=== PATIENT | female | born 1985 | race Hispanic/Latino ===

== ENCOUNTER 2020-06-12 15:32 | Inpatient (IN) | payer MEDICARE, OTHER ==
[~2020-06-12] VITALS: Ht 162.6 cm; Wt 127.5 kg
[2020-06-12] MEDS ORDERED: ALBUTEROL INHALER 90MCG/INH IH ONE (16:15)
[2020-06-12 16:23] LABS: BASOPHILS % (AUTO) 0.2 % (0.0-5.0); EOSINOPHILS % (AUTO) 1.5 % (0.0-8.0); HEMATOCRIT 42.1 % (36-48); LYMPHOCYTES % (AUTO) 25.9 % (21.0-51.0); MEAN CORPUSCULAR HEMOGLOBIN 29.7 pg (27.0-33.0); MEAN CORPUSCULAR HGB CONC 33.5 g/dL (32.0-36.0); MEAN CORPUSCULAR VOLUME 88.8 fL (79-99); MONOCYTES % (AUTO) 6.1 % (3.0-13.0); PLATELET COUNT (AUTO) 220 K/uL (130-400); RED BLOOD CELL COUNT(AUTO) 4.74 MIL/uL (4.00-5.50); RED CELL DISTRIBUTION WIDTH 13.7 % (11.0-15.5); WHITE BLOOD COUNT (AUTO) 10.1 K/uL (4.8-10.8)
[2020-06-12 16:37] LABS: CREATININE 0.9 mg/dL (0.5-1.5); POTASSIUM 3.7 mmol/L (3.5-5.1)
[2020-06-12 16:39] LABS: INR 0.92 (0.85-1.15); PARTIAL THROMBOPLASTIN TIME 25.9 SEC (26.3-35.5)
[2020-06-12 16:41] LABS: ALBUMIN 2.9 g/dL (3.5-5.0); BILIRUBIN,TOTAL 0.6 mg/dL (0.2-1.0); TOTAL PROTEIN, SERUM 8.1 g/dL (6.0-8.3)
[2020-06-12] MEDS ORDERED: LORAZEPAM 2 MG/ML 1 ML VIAL ONE (16:42)
[2020-06-12] MEDS ORDERED: ONDANSETRON HCL 4 MG/2 ML VIAL ONE (17:12)
[2020-06-12] MEDS ORDERED: DEXAMETHASONE SOD PHOSPHATE 4 MG/ML 1ML VIAL ONE (17:12)
[2020-06-12] MEDS ORDERED: MORPHINE SULFATE 2 MG/ML 1ML SYG ONE (17:13)
[2020-06-12] MEDS ORDERED: INSULIN HUMULIN R 100 UNIT/ML 3ML ONE (17:14)
[2020-06-12 17:52] LABS: ABG BASE EXCESS -0.3 mmol/L (-2.0-3.0); ABG HCO3 23.5 mmol/L (21.0-28.0); ABG OXYGEN SATURATION 94.2 % (95.0-99.0); ABG PCO2 36 mmHg (32-45)
[2020-06-12] MEDS ORDERED: ENOXAPARIN SODIUM 80 MG/0.8 ML SQ ONE (17:59)
[2020-06-12] MEDS ORDERED: GUAIFENESIN-CODEINE 5 ML SYRUP ONE (18:00)
[2020-06-12] MEDS ORDERED: LACTATED RINGERS 1000ML 1,000 ML IV SCH (18:40)
[2020-06-12] MEDS ORDERED: NITROGLYCERIN 0.4 MG SL TAB SL PRN (18:45)
[2020-06-12] MEDS ORDERED: MAG HYDROX/AL HYDROX/SIMETH ES 30 ML SUSP UDCUP PO PRN (18:45)
[2020-06-12] MEDS ORDERED: HYDRALAZINE HCL 20 MG/ML VIAL IV PRN (18:45)
[2020-06-12] MEDS ORDERED: DiphenhydrAMINE HCL 50 MG/ML VIAL IV PRN (18:45)
[2020-06-12] MEDS ORDERED: MAG HYDROX/AL HYDROX/SIMETH 30 ML, LIDOCAINE HCL 2% VISCOUS 30 ML, DIPHENHYDRAMINE HCL ... PO PRN ×3 (18:45)
[2020-06-12] MEDS ORDERED: LIDOCAINE HCL 2% VISCOUS 30 ML, MAG HYDROX/AL HYDROX/SIMETH 30 ML, BELLADONNA-PHENOBARB... PO PRN ×3 (18:45)
[2020-06-12] MEDS: DEXAMETHASONE SOD PHOSPHATE 4 MG/ML 1ML VIAL IVP SCH (18:45)
[2020-06-12] MEDS ORDERED: POTASSIUM CHLORIDE 20 MEQ ERTAB PO PRN (18:45)
[2020-06-12] MEDS ORDERED: LACTULOSE 20 GM/30 ML UDCUP PO PRN (18:45)
[2020-06-12] MEDS ORDERED: ACETAMINOPHEN 325 MG TAB PO PRN ×2 (18:45)
[2020-06-12] MEDS ORDERED: POTASSIUM CHLORIDE 20MEQ/100ML 100 ML IV PRN (18:45)
[2020-06-12] MEDS ORDERED: LIDOCAINE HCL-MPF 1% 2ML VIAL IJ PRN (18:45)
[2020-06-12] MEDS: CEFTRIAXONE SODIUM 1 GM IV SCH (18:45)
[2020-06-12] MEDS: PHARMACY COMMUNICATION MISC SCH ×2 (18:45→21:00)
[2020-06-12] MEDS ORDERED: POTASSIUM CHLORIDE 10% ELIXIR 20 MEQ/15 ML UDCUP PO PRN (18:45)
[2020-06-12] MEDS ORDERED: ERGOCALCIFEROL (VITAMIN D2) 50,000 UNIT CAPSULE PO ONE (18:45)
[2020-06-12] MEDS ORDERED: DIPHENHYDRAMINE HCL 25 MG CAPSULE PO PRN (18:45)
[2020-06-12] MEDS ORDERED: IOHEXOL 350 MG/ML 100ML INFUS..BTL IV ONE (19:21)
[2020-06-12 19:26] LABS: MAGNESIUM 1.7 mg/dL (1.80-2.40)
[2020-06-12] MEDS: AZITHROMYCIN 500MG+NS 250ML 250 ML IV SCH (19:30)
[2020-06-12] MEDS ORDERED: DOXYCYCLINE 100MG+NS 250ML 250 ML IV ONE (19:47)
[2020-06-12] MEDS ORDERED: ERGOCALCIFEROL (VITAMIN D2) 50,000 UNIT CAPSULE ONE (20:24)
[2020-06-12] MEDS ORDERED: POTASSIUM CHLORIDE 20 MEQ ERTAB PO ONE (20:25)
[2020-06-12] MEDS ORDERED: AZITHROMYCIN 500MG+NS 250ML 250 ML IV ONE (20:25)
[2020-06-12] MEDS ORDERED: CEFTRIAXONE SODIUM 1 GM ONE (20:25)
[2020-06-12] MEDS ORDERED: OSELTAMIVIR PHOSPHATE 75 MG CAP ONE (20:26)
[2020-06-12] MEDS ORDERED: MORPHINE SULFATE 4 MG/1ML SYG ONE (20:27)
[2020-06-12] MEDS ORDERED: FAMOTIDINE/PF 20 MG/2 ML VIAL IV ONE (20:27)
[2020-06-12] MEDS ORDERED: ALBUTEROL INHALER 90MCG/INH IH PRN (20:45)
[2020-06-12] MEDS: INSULIN LISPRO 100 UNIT/ML 3ML SQ SCH (21:00)
[2020-06-12] MEDS: FAMOTIDINE/PF 20 MG/2 ML VIAL IV SCH (21:00)
[2020-06-12] MEDS ORDERED: PHARMACY COMMUNICATION MISC SCH (21:00)
[2020-06-12] MEDS: OSELTAMIVIR PHOSPHATE 75 MG CAP PO SCH (21:00)
[2020-06-12] MEDS: METHYLPREDNISOLONE SOD SUCC 40MG/ML 1ML IVP SCH (21:00)
[2020-06-12] MEDS ORDERED: IVERMECTIN 3 MG TAB PO SCH (22:30)
[2020-06-13] VITALS (7 sets, daily range): BP systolic 108–173; BP diastolic 64–88
[2020-06-13] MEDS: MORPHINE SULFATE 4 MG/1ML SYG IV PRN ×2 (01:25→17:05)
[2020-06-13] MEDS ORDERED: DICY10 PO (01:43)
[2020-06-13] MEDS ORDERED: DIPH1TAB PO (01:43)
[2020-06-13] MEDS ORDERED: OMEP40CA13 PO (01:43)
[2020-06-13] MEDS ORDERED: LIPA1CAP8 PO (01:43)
[2020-06-13] MEDS ORDERED: [UNRECOGNIZED DRUG - CODE] PO (01:43)
[2020-06-13] MEDS: GUAIFENESIN-DM 200/20 MG 10 ML PO PRN ×4 (02:01→20:20)
[2020-06-13] MEDS: MORPHINE SULFATE 2 MG/ML 1ML SYG IV PRN ×3 (03:05→20:24)
[2020-06-13 04:11] LABS: HEMATOCRIT 38.7 % (36-48); LYMPHOCYTES % (AUTO) 22.1 % (21.0-51.0); MEAN CORPUSCULAR HEMOGLOBIN 29.6 pg (27.0-33.0); MEAN CORPUSCULAR HGB CONC 33.1 g/dL (32.0-36.0); MEAN CORPUSCULAR VOLUME 89.4 fL (79-99); MONOCYTES % (AUTO) 5.2 % (3.0-13.0); NEUTROPHILS % (AUTO) 72.4 % (40.0-77.0); PLATELET COUNT (AUTO) 189 K/uL (130-400); RED BLOOD CELL COUNT(AUTO) 4.33 MIL/uL (4.00-5.50); RED CELL DISTRIBUTION WIDTH 13.3 % (11.0-15.5); WHITE BLOOD COUNT (AUTO) 7.3 K/uL (4.8-10.8)
[2020-06-13 04:47] LABS: ALANINE AMINOTRANSFERASE 47 U/L (12-78); ALBUMIN 2.6 g/dL (3.5-5.0); ASPARTATE AMINOTRANSFERASE 21 U/L (10-37); BILIRUBIN,TOTAL 0.4 mg/dL (0.2-1.0); CARBON DIOXIDE 23 mmol/L (21-32); CHLORIDE 102 mmol/L (101-111); CREATININE 0.7 mg/dL (0.5-1.5); GLOMERULAR FILTR. RATE CALC 102 mL/min (>60); GLUCOSE,RANDOM 336 mg/dL (70-105); LACTATE DEHYDROGENASE 165 U/L (81-234); POTASSIUM 4.5 mmol/L (3.5-5.1); SODIUM SERUM 133 mmol/L (136-145); TOTAL PROTEIN, SERUM 7.5 g/dL (6.0-8.3); UREA NITROGEN, BLOOD 12 mg/dL (7-18)
[2020-06-13] MEDS: INSULIN LISPRO 100 UNIT/ML 3ML SQ SCH ×4 (05:32→22:02)
[2020-06-13] MEDS ORDERED: SODIUM CHLORIDE 0.9% 0 ML IV ONE (05:39)
[2020-06-13] MEDS ORDERED: SODIUM CHLORIDE 0.9% 100 ML IV ONE ×2 (05:40→15:27)
[2020-06-13] MEDS: FAMOTIDINE/PF 20 MG/2 ML VIAL IV SCH ×2 (08:52→20:19)
[2020-06-13] MEDS: METHYLPREDNISOLONE SOD SUCC 40MG/ML 1ML IVP SCH ×2 (08:52→20:19)
[2020-06-13] MEDS: OSELTAMIVIR PHOSPHATE 75 MG CAP PO SCH ×2 (08:53→20:19)
[2020-06-13] MEDS: ZINC SULFATE 220 CAPSULE PO SCH (08:53)
[2020-06-13] MEDS: ASCORBIC ACID 500 MG TAB PO SCH (08:53)
[2020-06-13] MEDS: ENOXAPARIN SODIUM 120 MG/0.8ML SQ SCH ×2 (08:55→20:19)
[2020-06-13] MEDS: BENZONATATE 100 MG CAPSULE PO PRN (08:59)
[2020-06-13] MEDS: PHARMACY COMMUNICATION MISC SCH ×2 (09:00→21:00)
[2020-06-13] MEDS ORDERED: ENOXAPARIN SODIUM 40 MG/0.4 ML SYRINGE SQ SCH (09:00)
--- NOTE | 2020-06-13 12:24 | NUR ---
Insulin Change Noted eMAR discrepancy by this RN. Only administered 6 units of Humalog insulin SQ, edited discrepancy in DEC. Notified shukri Escobar RN.
[2020-06-13] MEDS ORDERED: KETOROLAC TROMETHAMINE 30MG/ML IV SCH (13:40)
--- NOTE | 2020-06-13 14:30 | NUR ---
DC PLAN PATIENT RECENTLY MOVED FROM [place] TO MOVE IN WITH FAMILY. AUNT/UNCLE COUSIN. INDEPENDENT ABLE TO PERFORM ADL'S. PATIENT HAS NO SERVICES OR DME'S. WILL GIVE LOW INCOME CLINIC INFO IN CASE MCR FALLS OUT. Addendum: 06/13/20 at 1433 by RASHI HARRELL RN CM Amended: Links added.
[2020-06-13] MEDS: LOPERAMIDE HCL 2 MG CAP PO PRN (17:28)
--- NOTE | 2020-06-13 17:47 | NUR ---
Convalescent Plasma 1550: 1 unit of thawed convalescent plasma started at this time. VSS, RR even and unlabored, airway intact. Pt denies any CP or SOB. No diaphoresis, hives/itching, or airway obstruction noted. Will continue to monitor. 1630: 1 unit of thawed convalescent plasma completed at this time. Pt tolerated well, VSS.
[2020-06-13] MEDS: DEXAMETHASONE SOD PHOSPHATE 4 MG/ML 1ML VIAL IVP SCH (18:45)
[2020-06-13] MEDS: CEFTRIAXONE SODIUM 1 GM IV SCH (19:16)
[2020-06-13] MEDS: AZITHROMYCIN 500MG+NS 250ML 250 ML IV SCH (20:19)
[2020-06-13] MEDS: ZOLPIDEM TARTRATE 5 MG TAB PO PRN (23:20)
[2020-06-14 03:00] VITALS: BP 117/54
[2020-06-14 04:29] LABS: BASOPHILS % (AUTO) 0.1 % (0.0-5.0); HEMATOCRIT 39.5 % (36-48); LYMPHOCYTES % (AUTO) 22.7 % (21.0-51.0); MEAN CORPUSCULAR HEMOGLOBIN 29.5 pg (27.0-33.0); MEAN CORPUSCULAR HGB CONC 33.4 g/dL (32.0-36.0); MEAN CORPUSCULAR VOLUME 88.4 fL (79-99); MONOCYTES % (AUTO) 3.3 % (3.0-13.0); NEUTROPHILS % (AUTO) 73.8 % (40.0-77.0); PLATELET COUNT (AUTO) 209 K/uL (130-400); RED BLOOD CELL COUNT(AUTO) 4.47 MIL/uL (4.00-5.50); RED CELL DISTRIBUTION WIDTH 12.9 % (11.0-15.5); WHITE BLOOD COUNT (AUTO) 8.7 K/uL (4.8-10.8)
[2020-06-14 04:44] LABS: ALBUMIN 2.5 g/dL (3.5-5.0); BILIRUBIN,TOTAL 0.4 mg/dL (0.2-1.0); CREATININE 0.7 mg/dL (0.5-1.5); CRP QUANTITATIVE 105.9 mg/L (0.00-9.0); PHOSPHORUS 2.5 mg/dL (2.5-4.9); POTASSIUM 4.3 mmol/L (3.5-5.1); TOTAL PROTEIN, SERUM 7.6 g/dL (6.0-8.3)
[2020-06-14] MEDS: INSULIN LISPRO 100 UNIT/ML 3ML SQ SCH ×4 (06:32→21:49)
[2020-06-14] MEDS: GUAIFENESIN-DM 200/20 MG 10 ML PO PRN ×2 (07:04→14:05)
[2020-06-14] MEDS: MORPHINE SULFATE 4 MG/1ML SYG IV PRN ×4 (07:05→21:56)
[2020-06-14 08:31] VITALS: BP 103/53
[2020-06-14] MEDS: PHARMACY COMMUNICATION MISC SCH ×2 (09:00→19:35)
[2020-06-14] MEDS: ZINC SULFATE 220 CAPSULE PO SCH (09:25)
[2020-06-14] MEDS: FAMOTIDINE/PF 20 MG/2 ML VIAL IV SCH ×2 (09:25→20:47)
[2020-06-14] MEDS: METHYLPREDNISOLONE SOD SUCC 40MG/ML 1ML IVP SCH ×2 (09:25→20:47)
[2020-06-14] MEDS: OSELTAMIVIR PHOSPHATE 75 MG CAP PO SCH ×2 (09:25→20:47)
[2020-06-14] MEDS: ASCORBIC ACID 500 MG TAB PO SCH (09:25)
[2020-06-14] MEDS: ENOXAPARIN SODIUM 120 MG/0.8ML SQ SCH (09:26)
[2020-06-14] MEDS: BENZONATATE 100 MG CAPSULE PO PRN ×2 (09:26→14:05)
[2020-06-14] MEDS: LOPERAMIDE HCL 2 MG CAP PO PRN ×2 (09:46→12:40)
[2020-06-14 12:28] VITALS: BP 151/73
[2020-06-14] MEDS ORDERED: PHARMACY COMMUNICATION MISC SCH ×2 (12:45→22:30)
[2020-06-14] MEDS ORDERED: INSLAN SQ (14:11)
[2020-06-14] MEDS: [UNRECOGNIZED DRUG - OTHER] PO SCH (16:16)
[2020-06-14 16:51] VITALS: BP 147/87
[2020-06-14] MEDS: DEXAMETHASONE SOD PHOSPHATE 4 MG/ML 1ML VIAL IVP SCH (17:08)
[2020-06-14] MEDS: PANTOPRAZOLE SODIUM 40 MG TABLET.DR PO SCH (17:08)
[2020-06-14] MEDS: CEFTRIAXONE SODIUM 1 GM IV SCH (17:12)
[2020-06-14] MEDS: GUAIFENESIN-CODEINE 5 ML SYRUP PO SCH ×2 (18:39→23:08)
[2020-06-14 18:56] LABS: MAGNESIUM 1.7 mg/dL (1.80-2.40); PHOSPHORUS 2.7 mg/dL (2.5-4.9)
[2020-06-14 19:00] VITALS: BP 120/56
[2020-06-14] MEDS: AZITHROMYCIN 500MG+NS 250ML 250 ML IV SCH (20:45)
[2020-06-14] MEDS: ENOXAPARIN SODIUM 60 MG/0.6 ML SQ SCH (20:48)
[2020-06-14] MEDS ORDERED: DICYCLOMINE HCL 20 MG TAB PO PRN (22:30)
[2020-06-14 23:00] VITALS: BP 122/62
[2020-06-14] MEDS: INSULIN GLARGINE 100 UNITS/ML 10 ML VIAL SQ SCH (23:16)
[2020-06-15 03:00] VITALS: BP 113/52
[2020-06-15] MEDS: LEVOTHYROXINE 100 MCG TABLET PO SCH (04:35)
[2020-06-15] MEDS: GUAIFENESIN-CODEINE 5 ML SYRUP PO SCH ×4 (04:37→22:18)
[2020-06-15 04:50] LABS: BASOPHILS % (AUTO) 0.1 % (0.0-5.0); HEMATOCRIT 39.6 % (36-48); MEAN CORPUSCULAR HGB CONC 33.1 g/dL (32.0-36.0); MEAN CORPUSCULAR VOLUME 87.8 fL (79-99); MONOCYTES % (AUTO) 3.9 % (3.0-13.0); NEUTROPHILS % (AUTO) 73.8 % (40.0-77.0); PLATELET COUNT (AUTO) 244 K/uL (130-400); RED BLOOD CELL COUNT(AUTO) 4.51 MIL/uL (4.00-5.50); RED CELL DISTRIBUTION WIDTH 12.5 % (11.0-15.5); WHITE BLOOD COUNT (AUTO) 8.8 K/uL (4.8-10.8)
[2020-06-15 05:07] LABS: ALANINE AMINOTRANSFERASE 36 U/L (12-78); ALBUMIN 2.4 g/dL (3.5-5.0); ASPARTATE AMINOTRANSFERASE 14 U/L (10-37); BILIRUBIN,TOTAL 0.4 mg/dL (0.2-1.0); CARBON DIOXIDE 27 mmol/L (21-32); CHLORIDE 102 mmol/L (101-111); CREATININE 0.8 mg/dL (0.5-1.5); GLOMERULAR FILTR. RATE CALC 87 mL/min (>60); GLUCOSE,RANDOM 345 mg/dL (70-105); LACTATE DEHYDROGENASE 169 U/L (81-234); SODIUM SERUM 135 mmol/L (136-145); TOTAL PROTEIN, SERUM 7.4 g/dL (6.0-8.3); UREA NITROGEN, BLOOD 13 mg/dL (7-18)
[2020-06-15] MEDS: MORPHINE SULFATE 4 MG/1ML SYG IV PRN ×3 (05:36→19:45)
[2020-06-15] MEDS: INSULIN LISPRO 100 UNIT/ML 3ML SQ SCH ×7 (06:08→21:00)
[2020-06-15] MEDS: LIPASE/PROTEASE/AMYLASE 5000/17000/24000 PO SCH ×3 (08:00→17:00)
[2020-06-15] MEDS: [UNRECOGNIZED DRUG - OTHER] PO SCH ×3 (08:51→17:00)
[2020-06-15] MEDS: OSELTAMIVIR PHOSPHATE 75 MG CAP PO SCH ×2 (08:52→20:22)
[2020-06-15] MEDS: FAMOTIDINE/PF 20 MG/2 ML VIAL IV SCH ×2 (08:52→20:21)
[2020-06-15] MEDS: ZINC SULFATE 220 CAPSULE PO SCH (08:52)
[2020-06-15] MEDS: METHYLPREDNISOLONE SOD SUCC 40MG/ML 1ML IVP SCH ×2 (08:52→20:21)
[2020-06-15] MEDS: ASCORBIC ACID 500 MG TAB PO SCH (08:52)
[2020-06-15] MEDS: PANTOPRAZOLE SODIUM 40 MG TABLET.DR PO SCH (08:52)
[2020-06-15] MEDS: ENOXAPARIN SODIUM 60 MG/0.6 ML SQ SCH ×2 (08:53→20:22)
[2020-06-15] MEDS: PHARMACY COMMUNICATION MISC SCH ×2 (09:00→21:53)
[2020-06-15 09:16] VITALS: BP 120/50
[2020-06-15] MEDS: BENZONATATE 100 MG CAPSULE PO PRN ×2 (09:46→16:38)
[2020-06-15 12:15] VITALS: BP 128/77
[2020-06-15 14:40] LABS: APPEARANCE,URINE Clear (CLEAR); BILIRUBIN,URINE Negative (NEGATIVE); COLOR,URINE Yellow (YELLOW); GLUCOSE, URINE (UA) >=1000 mg/dL (NEGATIVE); KETONES,URINE 40 mg/dL (NEGATIVE); LEUKOCYTE ESTERASE ,URINE Negative (NEGATIVE); NITRATE,URINE Negative (NEGATIVE); OCCULT BLOOD,URINE Negative (NEGATIVE); PH,URINE 6.5 (5.0-8.0); PROTEIN,URINE Trace mg/dL (NEGATIVE)
[2020-06-15 15:16] LABS: BACTERIA,URINE Rare /HPF (None Seen); RBC,URINE 0-1 /HPF (0-1); WBC,URINE 0-1 /HPF (0-1); YEAST,URINE BUDDING Few /HPF (None Seen)
[2020-06-15 15:17] LABS: MUCUS,URINE Rare LPF (None Seen); SQUAMOUS EPITHELIAL CELL,UR Few /HPF (0-2)
[2020-06-15] MEDS: ONDANSETRON HCL 4 MG/2 ML VIAL IV PRN ×2 (16:38→23:06)
[2020-06-15 17:22] VITALS: BP 135/81
[2020-06-15 19:00] VITALS: BP 128/68
[2020-06-15] MEDS: INSULIN GLARGINE 100 UNITS/ML 10 ML VIAL SQ SCH (21:00)
[2020-06-15] MEDS: CEFTRIAXONE SODIUM 1 GM IV SCH (21:56)
[2020-06-15] MEDS: ZOLPIDEM TARTRATE 5 MG TAB PO PRN (22:18)
[2020-06-15 23:00] VITALS: BP 104/73
[2020-06-15] MEDS: MORPHINE SULFATE 2 MG/ML 1ML SYG IV PRN (23:05)
[2020-06-16 03:00] VITALS: BP 134/80
[2020-06-16] MEDS: GUAIFENESIN-CODEINE 5 ML SYRUP PO SCH ×4 (05:53→21:51)
[2020-06-16] MEDS: LEVOTHYROXINE 100 MCG TABLET PO SCH (06:30)
[2020-06-16] MEDS: INSULIN LISPRO 100 UNIT/ML 3ML SQ SCH ×8 (07:17→21:00)
[2020-06-16] MEDS: MORPHINE SULFATE 4 MG/1ML SYG IV PRN ×4 (07:18→21:52)
[2020-06-16 07:39] LABS: BASOPHILS % (AUTO) 0.1 % (0.0-5.0); HEMATOCRIT 39.5 % (36-48); LYMPHOCYTES % (AUTO) 34.3 % (21.0-51.0); MEAN CORPUSCULAR HEMOGLOBIN 29.3 pg (27.0-33.0); MEAN CORPUSCULAR HGB CONC 33.9 g/dL (32.0-36.0); MEAN CORPUSCULAR VOLUME 86.4 fL (79-99); MONOCYTES % (AUTO) 5.6 % (3.0-13.0); NEUTROPHILS % (AUTO) 59.7 % (40.0-77.0); PLATELET COUNT (AUTO) 280 K/uL (130-400); RED BLOOD CELL COUNT(AUTO) 4.57 MIL/uL (4.00-5.50); RED CELL DISTRIBUTION WIDTH 12.4 % (11.0-15.5); WHITE BLOOD COUNT (AUTO) 10.8 K/uL (4.8-10.8)
[2020-06-16 07:54] LABS: CREATININE 0.8 mg/dL (0.5-1.5); MAGNESIUM 1.9 mg/dL (1.80-2.40); PHOSPHORUS 3.3 mg/dL (2.5-4.9); POTASSIUM 4.3 mmol/L (3.5-5.1)
[2020-06-16 08:02] VITALS: BP 125/64
[2020-06-16] MEDS: ASCORBIC ACID 500 MG TAB PO SCH (08:44)
[2020-06-16] MEDS: [UNRECOGNIZED DRUG - OTHER] PO SCH ×3 (08:45→17:04)
[2020-06-16] MEDS: ZINC SULFATE 220 CAPSULE PO SCH (08:45)
[2020-06-16] MEDS: FAMOTIDINE/PF 20 MG/2 ML VIAL IV SCH ×2 (08:45→21:51)
[2020-06-16] MEDS: PANTOPRAZOLE SODIUM 40 MG TABLET.DR PO SCH (08:45)
[2020-06-16] MEDS: LIPASE/PROTEASE/AMYLASE 5000/17000/24000 PO SCH ×3 (08:45→17:12)
[2020-06-16] MEDS: METHYLPREDNISOLONE SOD SUCC 40MG/ML 1ML IVP SCH ×2 (08:45→21:51)
[2020-06-16] MEDS: ENOXAPARIN SODIUM 60 MG/0.6 ML SQ SCH ×2 (08:45→21:51)
[2020-06-16] MEDS: OSELTAMIVIR PHOSPHATE 75 MG CAP PO SCH ×2 (08:45→21:51)
[2020-06-16] MEDS: PHARMACY COMMUNICATION MISC SCH ×2 (08:46→21:00)
[2020-06-16 12:00] VITALS: BP 116/48
[2020-06-16 16:00] VITALS: BP 124/55
[2020-06-16] MEDS ORDERED: SODIUM CHLORIDE 0.9% 500ML 500 ML IV ONE (17:10)
[2020-06-16] MEDS: CEFTRIAXONE SODIUM 1 GM IV SCH (17:13)
[2020-06-16] MEDS ORDERED: SODIUM CHLORIDE 0.9% 500ML 500 ML IV SCH (17:15)
[2020-06-16] MEDS: DEXAMETHASONE SOD PHOSPHATE 4 MG/ML 1ML VIAL IVP SCH ×2 (17:38→17:40)
[2020-06-16 19:27] VITALS: BP 147/80
[2020-06-16] MEDS: INSULIN GLARGINE 100 UNITS/ML 10 ML VIAL SQ SCH (21:00)
[2020-06-16] MEDS: ZOLPIDEM TARTRATE 5 MG TAB PO PRN (23:12)
[2020-06-16] MEDS: MORPHINE SULFATE 2 MG/ML 1ML SYG IV PRN (23:12)
[2020-06-16 23:19] VITALS: BP 145/73
[2020-06-17 04:03] VITALS: BP 123/64
[2020-06-17] MEDS: MORPHINE SULFATE 4 MG/1ML SYG IV PRN ×4 (05:32→20:21)
[2020-06-17] MEDS: GUAIFENESIN-CODEINE 5 ML SYRUP PO SCH ×4 (05:32→23:50)
[2020-06-17 06:03] LABS: BASOPHILS % (AUTO) 0.2 % (0.0-5.0); HEMATOCRIT 40.3 % (36-48); LYMPHOCYTES % (AUTO) 22.7 % (21.0-51.0); MEAN CORPUSCULAR HEMOGLOBIN 29.2 pg (27.0-33.0); MEAN CORPUSCULAR HGB CONC 34.2 g/dL (32.0-36.0); MEAN CORPUSCULAR VOLUME 85.4 fL (79-99); MONOCYTES % (AUTO) 4.4 % (3.0-13.0); NEUTROPHILS % (AUTO) 71.9 % (40.0-77.0); PLATELET COUNT (AUTO) 292 K/uL (130-400); RED BLOOD CELL COUNT(AUTO) 4.72 MIL/uL (4.00-5.50); RED CELL DISTRIBUTION WIDTH 11.8 % (11.0-15.5)
[2020-06-17 06:27] LABS: ALBUMIN 2.6 g/dL (3.5-5.0); BILIRUBIN,TOTAL 0.4 mg/dL (0.2-1.0); CREATININE 0.7 mg/dL (0.5-1.5); POTASSIUM 4.2 mmol/L (3.5-5.1); TOTAL PROTEIN, SERUM 7.5 g/dL (6.0-8.3)
[2020-06-17] MEDS: INSULIN LISPRO 100 UNIT/ML 3ML SQ SCH ×8 (06:44→21:46)
[2020-06-17 07:00] VITALS: BP 112/55
[2020-06-17] MEDS: PHARMACY COMMUNICATION MISC SCH ×2 (09:00→20:23)
[2020-06-17] MEDS: FAMOTIDINE/PF 20 MG/2 ML VIAL IV SCH ×2 (09:13→20:17)
[2020-06-17] MEDS: [UNRECOGNIZED DRUG - OTHER] PO SCH ×3 (09:13→16:40)
[2020-06-17] MEDS: ZINC SULFATE 220 CAPSULE PO SCH (09:14)
[2020-06-17] MEDS: LIPASE/PROTEASE/AMYLASE 5000/17000/24000 PO SCH ×3 (09:14→16:39)
[2020-06-17] MEDS: ASCORBIC ACID 500 MG TAB PO SCH (09:14)
[2020-06-17] MEDS: ENOXAPARIN SODIUM 60 MG/0.6 ML SQ SCH ×2 (09:14→20:20)
[2020-06-17] MEDS: METHYLPREDNISOLONE SOD SUCC 40MG/ML 1ML IVP SCH ×2 (09:14→20:18)
[2020-06-17] MEDS: OSELTAMIVIR PHOSPHATE 75 MG CAP PO SCH (09:17)
[2020-06-17] MEDS: PANTOPRAZOLE SODIUM 40 MG TABLET.DR PO SCH (09:17)
[2020-06-17 11:00] VITALS: BP 140/65
[2020-06-17 15:00] VITALS: BP 120/76
[2020-06-17] MEDS: CEFTRIAXONE SODIUM 1 GM IV SCH (18:22)
[2020-06-17] MEDS: ZOLPIDEM TARTRATE 5 MG TAB PO PRN (20:21)
[2020-06-17 21:20] VITALS: BP 107/55
[2020-06-17] MEDS: INSULIN GLARGINE 100 UNITS/ML 10 ML VIAL SQ SCH (21:45)
[2020-06-18 00:47] VITALS: BP 137/87
[2020-06-18 04:23] LABS: BASOPHILS % (AUTO) 0.2 % (0.0-5.0); HEMATOCRIT 40.7 % (36-48); LYMPHOCYTES % (AUTO) 23.2 % (21.0-51.0); MEAN CORPUSCULAR HEMOGLOBIN 29.3 pg (27.0-33.0); MEAN CORPUSCULAR HGB CONC 34.2 g/dL (32.0-36.0); MEAN CORPUSCULAR VOLUME 85.9 fL (79-99); MONOCYTES % (AUTO) 5.4 % (3.0-13.0); NEUTROPHILS % (AUTO) 70.3 % (40.0-77.0); PLATELET COUNT (AUTO) 312 K/uL (130-400); RED BLOOD CELL COUNT(AUTO) 4.74 MIL/uL (4.00-5.50); RED CELL DISTRIBUTION WIDTH 11.9 % (11.0-15.5)
[2020-06-18 05:01] LABS: ALANINE AMINOTRANSFERASE 65 U/L (12-78); ALBUMIN 2.5 g/dL (3.5-5.0); ASPARTATE AMINOTRANSFERASE 36 U/L (10-37); BILIRUBIN,TOTAL 0.3 mg/dL (0.2-1.0); CARBON DIOXIDE 27 mmol/L (21-32); CHLORIDE 100 mmol/L (101-111); CREATININE 0.7 mg/dL (0.5-1.5); GLOMERULAR FILTR. RATE CALC 102 mL/min (>60); GLUCOSE,RANDOM 272 mg/dL (70-105); LACTATE DEHYDROGENASE 193 U/L (81-234); POTASSIUM 4.4 mmol/L (3.5-5.1); SODIUM SERUM 133 mmol/L (136-145); TOTAL PROTEIN, SERUM 7.1 g/dL (6.0-8.3); UREA NITROGEN, BLOOD 18 mg/dL (7-18)
[2020-06-18 05:58] VITALS: BP 147/63
[2020-06-18] MEDS: GUAIFENESIN-CODEINE 5 ML SYRUP PO SCH ×2 (06:02→11:48)
[2020-06-18] MEDS: MORPHINE SULFATE 4 MG/1ML SYG IV PRN (06:03)
[2020-06-18] MEDS: INSULIN LISPRO 100 UNIT/ML 3ML SQ SCH ×4 (06:49→11:51)
[2020-06-18 07:56] VITALS: BP 115/63
[2020-06-18] MEDS: [UNRECOGNIZED DRUG - OTHER] PO SCH ×2 (08:00→11:48)
[2020-06-18] MEDS: ENOXAPARIN SODIUM 60 MG/0.6 ML SQ SCH (09:50)
[2020-06-18] MEDS: METHYLPREDNISOLONE SOD SUCC 40MG/ML 1ML IVP SCH (09:51)
[2020-06-18] MEDS: ASCORBIC ACID 500 MG TAB PO SCH (09:51)
[2020-06-18] MEDS: FAMOTIDINE/PF 20 MG/2 ML VIAL IV SCH (09:51)
[2020-06-18] MEDS: ZINC SULFATE 220 CAPSULE PO SCH (09:51)
[2020-06-18] MEDS: LIPASE/PROTEASE/AMYLASE 5000/17000/24000 PO SCH ×2 (09:51→11:48)
[2020-06-18] MEDS: PANTOPRAZOLE SODIUM 40 MG TABLET.DR PO SCH (09:51)
[2020-06-18 12:32] VITALS: BP 118/68
[2020-06-18] MEDS ORDERED: ZINC220C6 PO (13:25)
[2020-06-18] MEDS ORDERED: ALBUHFA IH (13:25)
[2020-06-18] MEDS ORDERED: ASCO500T20 PO (13:25)
[2020-06-18] MEDS ORDERED: APIX2.5T PO (13:25)
[2020-06-18] MEDS ORDERED: DEXA6TAB PO (13:25)
--- NOTE | 2020-06-18 14:30 | NUR ---
DISCHARGE INSTRUCTIONS GIVEN TO PATIENT, PROVIDED WITH LIST OF PCP INSTRUCTED TO FOLLOW UP WITH PCP OF CHOICE IN 3-[address] LONGO INFORMATION FOR PAIN MANAGEMENT. IV AND TELE REMOVED. MADE AWARE OF ALL NEW RX SENT TO HER PHARMACY OF CHOICE. PATIENT AT THIS TIME AMBULATING IN ROOM, ON ROOM AIR SATURATING 97%, DENIES SOB, DENIES ABDOMINAL PAIN. PATIENT WILL BE DISCHARGED HOME
== END 2020-06-18 14:42 | disposition home or self-care (01) | DRG 177 ==
LOC: EDH 15:32 → EDHIP 15:33 → 2AH 23:33
PROVIDERS: ADMIT Internal Medicine; ATTEND Internal Medicine
PROC: XW13325 Transfusion of Convalescent Plasma (Nonautologous) into Peripheral Vein, Percutaneous Approach, New Technology Group 5 (ICD-10-PCS; principal; 2020-06-13)
DX: U07.1 COVID-19 (principal); J12.89 Other viral pneumonia; J10.08 Influenza due to other identified influenza virus with other specified pneumonia; J96.01 Acute respiratory failure with hypoxia; Z68.42 Body mass index [BMI] 45.0-49.9, adult; E87.1 Hypo-osmolality and hyponatremia; K86.1 Other chronic pancreatitis; K35.80 Unspecified acute appendicitis; R79.89 Other specified abnormal findings of blood chemistry; E66.9 Obesity, unspecified; E03.9 Hypothyroidism, unspecified; E11.9 Type 2 diabetes mellitus without complications; E66.01 Morbid (severe) obesity due to excess calories; E83.42 Hypomagnesemia; K21.9 Gastro-esophageal reflux disease without esophagitis; Z83.3 Family history of diabetes mellitus; Z90.49 Acquired absence of other specified parts of digestive tract; K90.0 Celiac disease
CPT/HCPCS: 36415; 36430; 36600; 71045; 74176; 80048; 80053; 81001; 82728; 82803; 82948; 83615; 83690; 83735; 84100; 84145; 84484; 85025; 85378; 85610; 85730; 86140; 86850; 86900; 86901; 86927; 87426; 87804; 93005; 99291; G0378; J0456; J0696; J1100; J1650; J1815; J1885; J2060; J2270; J2405; J2920; J3490; J7040; Q9967; U0003

== ENCOUNTER 2021-04-10 14:58 | Emergency (ER) | payer MEDICARE ==
[~2021-04-10] VITALS: Ht 162.6 cm; Wt 131.5 kg
[~2021-04-10 14:58] MED LIST: ALBUHFA IH; APIX2.5T PO; ASCO500T20 PO; DEXA6TAB PO; DICY10 PO; DIPH1TAB PO; INSLAN SQ; LIPA1CAP8 PO; OMEP40CA21 PO; ZINC220C6 PO; [UNRECOGNIZED DRUG - CODE] PO
[2021-04-10] MEDS ORDERED: 0.9%NACL 1000ML 1,000 ML IV ONE ×2 (16:00→16:49)
[2021-04-10 16:50] VITALS: BP 150/97
[2021-04-10 16:52] LABS: BASOPHILS % (AUTO) 0.5 % (0.0-5.0); HEMATOCRIT 41.5 % (36-48); LYMPHOCYTES % (AUTO) 34.6 % (21.0-51.0); MEAN CORPUSCULAR HEMOGLOBIN 29.6 pg (27.0-33.0); MEAN CORPUSCULAR HGB CONC 33.5 g/dL (32.0-36.0); MEAN CORPUSCULAR VOLUME 88.3 fL (79-99); MONOCYTES % (AUTO) 5.9 % (3.0-13.0); NEUTROPHILS % (AUTO) 55.8 % (40.0-77.0); PLATELET COUNT (AUTO) 271 K/uL (130-400); RED CELL DISTRIBUTION WIDTH 13.4 % (11.0-15.5); WHITE BLOOD COUNT (AUTO) 12.7 K/uL (4.8-10.8)
[2021-04-10] MEDS ORDERED: KETOROLAC 30MG VIAL (30MG/ML) IVP ONE (17:00)
[2021-04-10] MEDS ORDERED: MORPHINE 2 MG SYG IVP ONE ×2 (17:00→20:30)
[2021-04-10] MEDS ORDERED: ONDANSETRON 4MG INJ IVP ONE (17:00)
[2021-04-10 17:09] LABS: CARBON DIOXIDE 27 mmol/L (21-32); CHLORIDE 100 mmol/L (101-111); CREATININE 0.7 mg/dL (0.5-1.5); GLOMERULAR FILTR. RATE CALC 101 mL/min (>60); GLUCOSE,RANDOM 373 mg/dL (70-105); POTASSIUM 4.2 mmol/L (3.5-5.1); SODIUM SERUM 134 mmol/L (136-145); UREA NITROGEN, BLOOD 14 mg/dL (7-18)
[2021-04-10 17:22] LABS: ALANINE AMINOTRANSFERASE 105 U/L (12-78); ALBUMIN 3.1 g/dL (3.5-5.0); ASPARTATE AMINOTRANSFERASE 49 U/L (10-37); BILIRUBIN,TOTAL 0.5 mg/dL (0.2-1.0); CREATINE KINASE, TOTAL 79 U/L (21-232); MYOGLOBIN 17 ng/mL (10-92); TOTAL PROTEIN, SERUM 7.9 g/dL (6.0-8.3); TROPONIN I < 0.04 ng/mL (0.00-0.06)
[2021-04-10 17:56] LABS: AMYLASE 66 U/L (25-115); LIPASE 638 U/L (114-286)
[2021-04-10 18:21] LABS: HCG,QUAL RESULT NEGATIVE (NEGATIVE)
[2021-04-10 18:26] LABS: AMPHET/METH SCREEN,URINE NEGATIVE (NEGATIVE); BARBITURATE SCREEN, URINE NEGATIVE (NEGATIVE); BENZODIAZEPINES SCREEN,URINE NEGATIVE (NEGATIVE); CANNABINOID SCREEN,URINE NEGATIVE (NEGATIVE); COCAINE SCREEN,URINE NEGATIVE (NEGATIVE); OPIATE SCREEN,URINE NEGATIVE (NEGATIVE); PHENCYCLIDINE SCREEN,URINE NEGATIVE (NEGATIVE)
[2021-04-10 20:11] VITALS: BP 132/77
[2021-04-10] MEDS ORDERED: ACET1TAB25 PO (20:22)
[2021-04-10] MEDS ORDERED: IBUP-2070 PO (20:22)
[2021-04-10] MEDS ORDERED: DICY20TA2 PO (20:23)
== END 2021-04-10 20:48 | disposition home or self-care (01) ==
LOC: EDH 14:58
DX: K86.1 Other chronic pancreatitis (principal); E10.65 Type 1 diabetes mellitus with hyperglycemia; M25.531 Pain in right wrist; R11.2 Nausea with vomiting, unspecified; Z90.49 Acquired absence of other specified parts of digestive tract; Z98.890 Other specified postprocedural states; Z91.041 Radiographic dye allergy status; Z88.8 Allergy status to other drugs, medicaments and biological substances; Z79.899 Other long term (current) drug therapy
CPT/HCPCS: 36415; 71045; 73110; 74176; 80053; 80305; 81025; 82150; 82550; 83690; 83874; 84484; 85025; 96361; 96374; 96375; 96376; 99285; J1885; J2405; J7030

== ENCOUNTER 2022-03-13 02:30 | Emergency (ER) | payer MEDICARE ==
[~2022-03-13] VITALS: Ht 162.6 cm; Wt 135.6 kg
[~2022-03-13 02:30] MED LIST changes: +ACET-2079 PO; +DICY20TA2 PO; +IBUP-2070 PO
[2022-03-13] MEDS ORDERED: OSELTAMIVIR PHOSPHATE 75 MG CAP PO SCH (03:30)
[2022-03-13] MEDS ORDERED: ONDANSETRON 4MG INJ IVP ONE (04:00)
[2022-03-13] MEDS ORDERED: ACETAMINOPHEN 500 MG TABLET PO ONE (04:00)
[2022-03-13] MEDS ORDERED: 0.9%NACL 1000ML 1,000 ML IV ONE (04:00)
[2022-03-13] MEDS ORDERED: IPRATROPIUM/ALBUTEROL SULFATE 3 ML SOLUTION IH ONE (04:00)
[2022-03-13] MEDS ORDERED: GUAIFENESIN SUGAR-FREE 100 MG/5 ML UDCUP PO SCH (04:00)
[2022-03-13 04:30] LABS: BASOPHILS % (AUTO) 0.3 % (0.0-5.0); EOSINOPHILS % (AUTO) 0.7 % (0.0-8.0); HEMATOCRIT 43.3 % (36-48); LYMPHOCYTES % (AUTO) 29.4 % (21.0-51.0); MEAN CORPUSCULAR HEMOGLOBIN 29.4 pg (27.0-33.0); MEAN CORPUSCULAR HGB CONC 33.3 g/dL (32.0-36.0); MEAN CORPUSCULAR VOLUME 88.5 fL (79-99); MONOCYTES % (AUTO) 9.1 % (3.0-13.0); NEUTROPHILS % (AUTO) 60.3 % (40.0-77.0); PLATELET COUNT (AUTO) 226 K/uL (130-400); RED BLOOD CELL COUNT(AUTO) 4.89 MIL/uL (4.00-5.50); RED CELL DISTRIBUTION WIDTH 13.4 % (11.0-15.5); WHITE BLOOD COUNT (AUTO) 10.1 K/uL (4.8-10.8)
[2022-03-13 04:44] LABS: ALBUMIN 2.8 g/dL (3.5-5.0); BILIRUBIN,TOTAL 0.3 mg/dL (0.2-1.0); CREATININE 0.9 mg/dL (0.5-1.5); POTASSIUM 4.3 mmol/L (3.5-5.1); TOTAL PROTEIN, SERUM 7.6 g/dL (6.0-8.3)
[2022-03-13 05:10] LABS: APPEARANCE,URINE Cloudy (CLEAR); BILIRUBIN,URINE Small (NEGATIVE); COLOR,URINE Dark Yellow (YELLOW); GLUCOSE, URINE (UA) Negative (NEGATIVE); KETONES,URINE 15 mg/dL (NEGATIVE); LEUKOCYTE ESTERASE ,URINE Trace (NEGATIVE); NITRATE,URINE Negative (NEGATIVE); OCCULT BLOOD,URINE Small (NEGATIVE); PROTEIN,URINE POS 2+ mg/dL (NEGATIVE)
[2022-03-13 05:30] LABS: AMORPHOUS SEDIMENT,UR Few /LPF (None Seen); BACTERIA,URINE Few /HPF (None Seen); MUCUS,URINE Many LPF (None Seen); RBC,URINE None Seen /HPF (0-1); SQUAMOUS EPITHELIAL CELL,UR Moderate /HPF (0-2)
[2022-03-13] MEDS ORDERED: KETOROLAC 30MG VIAL (30MG/ML) IVP ONE (05:30)
[2022-03-13] MEDS ORDERED: SOLU-MEDROL 125MG VIAL IVP ONE (05:30)
[2022-03-13 05:31] VITALS: BP 117/56
[2022-03-13] MEDS ORDERED: AZIT250T PO (05:42)
[2022-03-13] MEDS ORDERED: ALBU1.252 IH (05:42)
[2022-03-13] MEDS ORDERED: OSEL75 PO (05:42)
[2022-03-13] MEDS ORDERED: BENZ-39 PO (05:42)
[2022-03-13] MEDS ORDERED: ONDA4TAB10 PO (05:42)
[2022-03-13] MEDS ORDERED: AZITHROMYCIN 250 MG TABLET PO ONE (06:00)
== END 2022-03-13 05:47 | disposition home or self-care (01) ==
LOC: EDH 02:30
DX: J10.00 Influenza due to other identified influenza virus with unspecified type of pneumonia (principal); E86.0 Dehydration; Z20.822 Contact with and (suspected) exposure to COVID-19; E11.9 Type 2 diabetes mellitus without complications; Z79.01 Long term (current) use of anticoagulants; Z79.1 Long term (current) use of non-steroidal anti-inflammatories (NSAID); Z79.52 Long term (current) use of systemic steroids; Z88.8 Allergy status to other drugs, medicaments and biological substances; Z90.49 Acquired absence of other specified parts of digestive tract
CPT/HCPCS: 36415; 71045; 80053; 81001; 82550; 83690; 85025; 87635; 87804 ×2; 87880; 94640; 96361; 96374; 96375; 99284; C9803; J1885; J2405; J2930; J7030